=== PATIENT | female | born 1970 | race Caucasian/White ===

== ENCOUNTER → 2023-12-03 14:49 | Outpatient (REF) | payer OTHER, SELFPAY | LOC: HWRAD 14:49 | PROVIDERS: ATTENDING PHYSICIAN Physician Assistant Medical | DX: S99.921A Unspecified injury of right foot, initial encounter (principal) | CPT/HCPCS: 73630 ==

== ENCOUNTER → 2023-12-25 12:43 | Outpatient (REF) | payer OTHER, SELFPAY | LOC: HWRAD 12:43 | PROVIDERS: ATTENDING PHYSICIAN Nurse Practitioner Family; FAMILY PHYSICIAN Family Medicine | DX: N95.0 Postmenopausal bleeding (principal) | CPT/HCPCS: 76830; 76856 ==

== ENCOUNTER → 2023-12-26 11:57 | Outpatient (REF) | payer OTHER, SELFPAY | LOC: WDC 11:57 | PROVIDERS: ATTENDING PHYSICIAN Nurse Practitioner Family; FAMILY PHYSICIAN Family Medicine | DX: Z12.31 Encounter for screening mammogram for malignant neoplasm of breast (principal) | CPT/HCPCS: 77063; 77067 ==

== ENCOUNTER 2024-08-27 06:27 | Day surgery (SDC) | payer OTHER, SELFPAY ==
[2024-08-27] VITALS (8 sets, daily range): BP systolic 98–130; BP diastolic 53–81; BMI 22.2
[2024-08-27] MEDS: NORMOSOL-R/PLASMALYTE-A 1000 IV (09:56)
[2024-08-27] MEDS: TYLENOL 1000 MG PO (09:56)
[2024-08-27] MEDS: Pyridium 200 MG PO (11:24)
== END 2024-08-27 12:50 | disposition home or self-care (01) ==
LOC: SDS 06:27
PROVIDERS: ATTENDING PHYSICIAN Specialist
DX: N20.0 Calculus of kidney (principal)
CPT/HCPCS: 52356; 74018; 76000; C1894; C2617

== ENCOUNTER 2024-10-17 15:12 | Emergency (ER) | payer OTHER, SELFPAY ==
[2024-10-17 15:26] VITALS: BP 107/72
[2024-10-17 15:44] LABS: % Basophils 0.3 % (0-2); % Eosinophils 0.6 % (0-6); % Immature Granulocytes 0.2 % (0-0.5); % Lymphocytes 34.9 % (20.5-51.1); % Monocytes 5.9 % (1.7-9.3); % Neutrophils 58.1 % (42.2-75.2); Absolute Eosinophils 0.1 10^3/uL (0-0.7); Absolute Lymphocytes 3.1 10^3/uL (1.2-3.4); Absolute Monocytes 0.5 10^3/uL (0.1-0.6); Absolute Neutrophils 5.1 10^3/uL (1.4-6.5); Hematocrit 42.7 % (37.0-47.0); Hemoglobin 14.6 g/dL (12.0-16.0); Mean Corp Hgb Conc. 34.2 g/dL (33.0-37.0); Mean Corpuscular Hgb 31.9 pg (27.0-31.0); Mean Corpuscular Volume 93.4 fL (81.0-99.0); Mean Platelet Volume 8.9 fL (7.4-10.4); Nucleated Red Blood Cells % 0 %; Platelet Count 286 10^3/uL (130-400); Red Blood Cell Count 4.57 10^6/uL (4.20-5.40); Red Cell Dist. Width 12.3 % (11.5-14.5); White Blood Cell Count 8.8 10^3/uL (4.8-10.8)
[2024-10-17 16:00] LABS: HCG, Serum Qualitative Screen Negative
[2024-10-17 16:02] LABS: Urine Albumin Negative (Neg - Trace); Urine Bilirubin Negative (Negative); Urine Character Clear (Clear); Urine Color Yellow; Urine Glucose Negative (Negative); Urine Ketone Negative (Negative); Urine Leukocyte 2+ (Negative); Urine Nitrite Negative (Negative); Urine Occult Blood 1+ (Negative); Urine Specific Gravity 1.025 (<1.030); Urine Urobilinogen Negative (Neg - 1+)
[2024-10-17 16:04] LABS: ALT (SGPT) 15 U/L (0-35); AST (SGOT) 20 U/L (14-36); Albumin 5.2 g/dl (3.5-5.0); Alkaline Phosphatase 37 U/L (38-126); Blood Urea Nitrogen 15 mg/dl (7-17); Calcium 10.1 mg/dl (8.4-10.2); Carbon Dioxide 23 mmol/L (22-30); Chloride 108 mmol/L (98-107); Glucose 118 mg/dl (70-99); Potassium 4.3 mmol/L (3.5-5.1); Sodium 143 mmol/L (135-145); Total Bilirubin 0.8 mg/dl (0.2-1.3); Total Protein 7.9 g/dl (6.3-8.2); eGFR > 60.00
[2024-10-17 16:20] LABS: Urine Mucus Few
[2024-10-17 16:21] LABS: Urine Bacteria Moderate (Negative); Urine Red Blood Cell 0-2 /HPF (0-2)
[2024-10-17 16:48] LABS: Lipase 80 U/L (23-300)
--- NOTE | 2024-10-17 18:23 | ED.GENMED ---
History of Present Illness
General
Chief Complaint: Flank Pain
Source: patient
Exam Limitations: none
Time Seen by Provider: 10/17/24 18:00
History of Present Illness
History of Present Illness:
54-year-old female presents complaining of persistent flank pain and right lower abdominal pain. She notes the pain in her flank is both sides. She had a CT scan done in [place] 2 weeks ago. She has a history of kidney stones and has required
stents and lithotripsy. The pain that she describes feels somewhat similar to her kidney stones. She was told she had some type of lesion on her left kidney on the CT scan in [place]. She denies any urinary symptoms fever or fever. She does note
nausea and vomiting. No other complaints at this time
Past History
Past History
ED Past Medical History: Other (Kidney stones)
ED Past Surgical History: Urological (Staggering calculus removal right kidney)
Social History
Tobacco: Smoker
Alcohol: Occasional
Drug: None
Personal: Other (Boyfriend)
Living: other (Boyfriend)
Employment: Employed
Phy Exam
Physical Exam
Physical Exam:
General: Well-appearing female no acute respiratory distress
HEENT: Normocephalic atraumatic heart: Regular rate and rhythm
Lungs: Clear no wheeze abdomen soft tender to the right lower abdomen no guarding. She is also tender of the right costovertebral angle. Abdomen is nondistended no significant left-sided tenderness
Extremities: No cyanosis
Course
Orders/Labs/Results
Orders:
Orders
10/17/24 15:30
Test Result ONCE
10/17/24 15:35
Complete Blood Count/With Diff Urgent
Comprehensive Metabolic Panel Urgent
HCG, Serum Qualitative Screen Urgent
Comment: Notify provider if positive test present
Lipase Urgent
Urinalysis Reflex To Culture Urgent
Date Specimen was Collected: 10/17/24
Time Specimen was Collected: 15:30
Urine Microscopic Reflex Cult Urgent
Urine Culture Urgent
KRISTIAN Source: U
Specimen Description:
Date Specimen was Collected: 10/17/24
Time Specimen was Collected: 15:30
10/17/24 18:21
Ketorolac [Toradol] 15 mg IV NOW STA
Ondansetron Injectable [Zofran] 4 mg IV NOW STA
10/17/24 18:22
CT Abd/pel Without Iv Or Oral Urgent
Comment:
Reason For Exam: hematuria, flank pain
Abnormal Lab Results
10/17/24
15:35
MCH 31.9 H pg
(27.0-31.0)
Chloride 108 H mmol/L
(98-107)
Glucose 118 H mg/dl
(70-99)
Alkaline Phosphatase 37 L U/L
(38-126)
Albumin 5.2 H g/dl
(3.5-5.0)
Ur Occult Blood Reflex 1+ A
(Negative)
Leukocyte Esterase Rfl 2+ A
(Negative)
Urine Bacteria (Reflex) Moderate A
(Negative)
10/17/24 15:35
10/17/24 15:35
Vital Signs
Initial and Last Documented VS:
Initial Vital Signs
Temp Pulse Resp BP Pulse Ox
98.9 F 89 16 107/72 97
10/17/24 15:26 10/17/24 15:26 10/17/24 15:26 10/17/24 15:26 10/17/24 15:26
Last Documented Vital Signs
Temp Pulse Resp BP Pulse Ox
98.9 F 89 16 110/72 98
10/17/24 15:26 10/17/24 15:26 10/17/24 15:26 10/17/24 19:05 10/17/24 19:28
MDM/Problems Addressed
Differential Diagnosis Includes:
Right flank and lower abdominal pain. Consider renal colic versus appendicitis versus ovarian cyst versus constipation or pyelonephritis
Urinalysis shows some blood leukocytes and bacteria. Will attempt to load CT scan from [place] onto our system for visualization but will need a repeat CT today. This is ordered. Zofran and Toradol ordered
*Critical Care Note
Total Time (30-74mins, 75-104mins- exclusive of procedures): Not Applicable
Update Note
Update Note:
Patient reexamined. Appears well upon reassessment. Urinalysis still with possible infection. CT of abdomen shows no active kidney stone or other acute inflammatory process. I suspect continued cystitis. No fever white count normal. Will treat
with Omnicef. Stable for discharge with urology follow-up
ED Attending Note
-
Portions of this chart may have been created with voice recognition software.� Occasional wrong word or��sound alike� substitutions may have occurred due to the inherent limitations of voice recognition software.
Discharge Plan
Departure
Patient Disposition: Home (Routine Discharge)
Date of Disposition: 10/17/24
Time of Disposition: 22:29
Patient with high blood pressure during this ER visit?: No
Discharge Problem:
UTI (urinary tract infection)
Instructions: Urinary tract infections in adults
Prescriptions:
New
cefdinir 300 mg capsule
300 mg PO BID Qty: 14 0RF
No Action
ibuprofen 200 mg Tablet
400 mg PO Q6H PRN (Reason: pain)
Cbd Gummies
0.5 gummy PO PRN PRN (Reason: anxiety, sleep)
Referrals:
Paloma Rogers, [Family Provider] -
Activity Restrictions/Additional Instructions:
Take antibiotics as directed. Drink plenty of fluids. Return if worse otherwise follow-up with your urologist
Interventions
Interventions:
*Risk Screen - Suicide Last Done: 10/17/24 15:26
*General Assessment Last Done: 10/17/24 17:39
*Neglect/Abuse Screening Last Done: 10/17/24 15:26
*ED- Fall Risk Assessment Last Done: 10/17/24 19:04
*ED COVID-19 Vaccine History Last Done: 10/17/24 19:04
VQ-Czgljl-Jqoubcbkdq Assessment Last Done: 10/17/24 19:28
ED-Female Genitourinary Assessment Last Done: 10/17/24 19:28
Discharge Date and Time
Print Language: K[place]IL[place]
[2024-10-17 19:04] VITALS: BMI 23.4
[2024-10-17 19:05] VITALS: BP 110/72
[2024-10-17] MEDS: ZOFRAN 4 MG IV (19:31)
[2024-10-17] MEDS: TORADOL 15 MG IV (19:32)
== END 2024-10-17 22:52 | disposition home or self-care (01) ==
LOC: EMR 15:12
PROVIDERS: Emergency Medicine; EMERGENCY PHYSICIAN Emergency Medicine; FAMILY PHYSICIAN Family Medicine
DX: N39.0 Urinary tract infection, site not specified (principal); F17.200 Nicotine dependence, unspecified, uncomplicated
CPT/HCPCS: 99284; 96374; 96375; 74176; 80053; 81003; 81015; 83690; 84703; 85025; 87086

== ENCOUNTER → 2025-01-14 08:50 | Outpatient (REF) | payer OTHER, SELFPAY | LOC: HWRAD 08:50 | PROVIDERS: ATTENDING PHYSICIAN Internal Medicine Gastroenterology; FAMILY PHYSICIAN Family Medicine | DX: R10.9 Unspecified abdominal pain (principal) | CPT/HCPCS: 76700 ==

== ENCOUNTER → 2025-02-25 16:05 | Outpatient (REF) | payer OTHER, SELFPAY | LOC: WDC 16:05 | PROVIDERS: ATTENDING PHYSICIAN Nurse Practitioner Family; FAMILY PHYSICIAN Family Medicine | DX: Z12.31 Encounter for screening mammogram for malignant neoplasm of breast (principal) | CPT/HCPCS: 77063; 77067 ==

== ENCOUNTER 2025-03-16 18:49 | Emergency (ER) | payer OTHER, SELFPAY ==
[2025-03-16 18:51] VITALS: BP 138/71
[2025-03-16 19:06] LABS: Hematocrit 42.8 % (37.0-47.0); Hemoglobin 14.4 g/dL (12.0-16.0); Mean Corp Hgb Conc. 33.6 g/dL (33.0-37.0); Mean Corpuscular Volume 94.1 fL (81.0-99.0); Nucleated Red Blood Cells % 0 %; Platelet Count 279 10^3/uL (130-400); Red Cell Dist. Width 12.2 % (11.5-14.5)
[2025-03-16 19:28] LABS: ALT (SGPT) 18 U/L (0-35); AST (SGOT) 21 U/L (14-36); Albumin 4.9 g/dl (3.5-5.0); Alkaline Phosphatase 39 U/L (38-126); Blood Urea Nitrogen 15 mg/dl (7-17); Calcium 10.4 mg/dl (8.4-10.2); Carbon Dioxide 25 mmol/L (22-30); Chloride 106 mmol/L (98-107); Glucose 100 mg/dl (70-99); Potassium 4.2 mmol/L (3.5-5.1); Sodium 138 mmol/L (135-145); Total Protein 7.7 g/dl (6.3-8.2); eGFR > 60.00
[2025-03-16 20:24] VITALS: BMI 23.4
[2025-03-16 20:27] VITALS: BP 112/64
[2025-03-16] MEDS: NSS 1000 IV (20:35)
[2025-03-16 21:00] VITALS: BP 111/82
--- NOTE | 2025-03-16 21:09 | ED.GENMED ---
History of Present Illness
General
Chief Complaint: Abdominal Symptoms
Source: patient
Exam Limitations: none
Time Seen by Provider: 03/16/25 20:05
Nursing documentation reviewed up to this point in time: agreed with
History of Present Illness
History of Present Illness:
Patient who has recently taken 3 different antibiotics for urinary tract infection, presents to ED secondary to persistent nonbloody diarrhea over the past 4 days, along with generalized weakness/fatigue sensation. Denies fever or chills. Denies
nausea or vomiting. Denies abdominal pain. Denies headache. Denies dizziness. Denies loss of appetite. Patient spoke with her primary care physician, who is concerned that she may have C. difficile infection and referred patient to ED for an
evaluation.
Past History
Past History
ED Past Medical History: Other (Kidney stones)
ED Past Surgical History: Urological (Staggering calculus removal right kidney)
Social History
Tobacco: Smoker
Alcohol: Occasional
Drug: None
Personal: Other (Boyfriend)
Living: other (Boyfriend)
Employment: Employed
Review of Systems
Review of Systems
Allergies reviewed?: Yes
All Other Systems: ROS reviewed and negative except as documented in HPI and ROS
Constitutional: Reports no symptoms; Denies fever
Respiratory: Reports no symptoms
Cardiac: Reports no symptoms
ABD/GI: Reports diarrhea; Denies abdominal pain, nausea or vomiting
Musculoskeletal: Reports no symptoms
Skin: Reports no symptoms
Neurological: Reports weakness; Denies dizzy or headache
Phy Exam
Physical Exam
Physical Exam:
Physical Exam
General: no apparent distress, not acutely ill. afebrile
Head: nc/at. eomi
Neck: supple. no meningeal signs.
Heart: s1/s2 regular rate and rhythm
Lungs: no acute respiratory distress. clear bilaterally
Abdomen: normal bowel sounds. not tender.
Neuro: alert and oriented x 3. no focal neurological deficits
Skin: no rash
Psychiatric: well kept. interactive and cooperative
Extremities: no edema. no calf tenderness.
Course
Orders/Labs/Results
Orders:
Orders
03/16/25 19:01
CMP [Comprehensive Metabolic Panel] Urgent
Complete Blood Count/With Diff Urgent
03/16/25 20:19
Electrocardiogram (*1) Urgent
Reason for Study: QTc Monitoring
EKG- Treatment ONCE
0.9% Sodium Chloride 1000 ml [Nss] 1,000 ml IV BOLUS
03/16/25 22:39
Ondansetron Injectable [Zofran] 4 mg IV NOW STA
Abnormal Lab Results
03/16/25
19:01
MCH 31.6 H pg
(27.0-31.0)
Glucose 100 H mg/dl
(70-99)
Calcium 10.4 H mg/dl
(8.4-10.2)
03/16/25 19:01
03/16/25 19:01
Vital Signs
Initial and Last Documented VS:
Initial Vital Signs
Temp Pulse Resp BP Pulse Ox
98.5 F 70 18 138/71 99
03/16/25 18:51 03/16/25 18:51 03/16/25 18:51 03/16/25 18:51 03/16/25 18:51
Last Documented Vital Signs
Temp Pulse Resp BP Pulse Ox
98.5 F 67 18 107/70 99
03/16/25 18:51 03/16/25 20:27 03/16/25 20:27 03/16/25 22:00 03/16/25 22:15
MDM/Problems Addressed
MDM/Problems Addressed:
Blood work reviewed and discussed with patient. Unfortunately, during extended course observation ED, patient unable to produce stool sample to be analyzed. However, in light of patient's mild to moderate risk for C. difficile infection, will
advise patient to contact her primary care physician, to make arrange for an outpatient stool study. Return precautions provided, i.e. fever/intractable vomiting. Patient expresses understanding at time of test
*Pulse Oximetry
SaO2: 97
Oxygen Mode of Delivery: Room air
Patient hypoxic: no
*Critical Care Note
Total Time (30-74mins, 75-104mins- exclusive of procedures): Not Applicable
ED Attending Note
-
Portions of this chart may have been created with voice recognition software.� Occasional wrong word or��sound alike� substitutions may have occurred due to the inherent limitations of voice recognition software.
Discharge Plan
Departure
Patient Disposition: Home (Routine Discharge)
Date of Disposition: 03/17/25
Time of Disposition: 00:12
Patient with high blood pressure during this ER visit?: Yes
Condition: Fair
Discharge Problem:
Diarrhea
Instructions: Acute Diarrhea
Prescriptions:
No Action
ibuprofen 200 mg Tablet
400 mg PO Q6H PRN (Reason: pain)
Cbd Gummies
0.5 gummy PO PRN PRN (Reason: anxiety, sleep)
cefdinir 300 mg capsule
300 mg PO BID Qty: 14 0RF
Referrals:
Des Ryan MD [Family Provider, Family Practice]
Activity Restrictions/Additional Instructions:
As discussed, please follow-up with your primary physician for reevaluation, including outpatient stool study.
Interventions
Interventions:
*Risk Screen - Suicide Last Done: 03/16/25 18:51
*General Assessment Last Done: 03/16/25 18:51
*Neglect/Abuse Screening Last Done: 03/16/25 20:27
*ED- Fall Risk Assessment Last Done: 03/16/25 20:27
*ED COVID-19 Vaccine History Last Done: 03/16/25 20:27
*ED Influenza Vaccine History Last Done: 03/16/25 20:27
*Nursing Disposition Last Done: 03/17/25 00:35
PV-Zzyugq-Ypvroxvvrj Assessment Last Done: 03/16/25 20:28
Discharge Date and Time
Discharge Date/Time: 03/17/25 00:36
Print Language: STATELESS
[2025-03-16 22:00] VITALS: BP 107/70
[2025-03-16] MEDS: ZOFRAN 4 MG IV (22:46)
== END 2025-03-17 00:36 | disposition home or self-care (01) ==
LOC: EMR 18:49
PROVIDERS: Emergency Medicine; EMERGENCY PHYSICIAN Emergency Medicine; FAMILY PHYSICIAN Family Medicine
DX: R19.7 Diarrhea, unspecified (principal); F17.200 Nicotine dependence, unspecified, uncomplicated; Z87.442 Personal history of urinary calculi
CPT/HCPCS: 99283; 96374; 96361; 80053; 85025; 93005

== ENCOUNTER → 2025-05-15 09:12 | Outpatient (REF) | payer OTHER, SELFPAY | LOC: RAD 09:12 | PROVIDERS: ATTENDING PHYSICIAN Physician Assistant Medical; FAMILY PHYSICIAN Family Medicine | DX: R22.0 Localized swelling, mass and lump, head (principal) | CPT/HCPCS: 71260; Q9967 ==

== ENCOUNTER → 2025-05-21 11:56 | Outpatient (REF) | payer OTHER, SELFPAY | LOC: RAD 11:56 | PROVIDERS: ATTENDING PHYSICIAN Physician Assistant Medical | DX: M25.521 Pain in right elbow (principal) | CPT/HCPCS: 73080; 73110; 73564 ==

== ENCOUNTER → 2025-06-15 15:50 | Outpatient (REF) | payer OTHER, SELFPAY | LOC: RAD 15:50 | PROVIDERS: ATTENDING PHYSICIAN Physician Assistant Medical | DX: M54.6 Pain in thoracic spine (principal); M54.2 Cervicalgia; M54.9 Dorsalgia, unspecified; R10.9 Unspecified abdominal pain | CPT/HCPCS: 71046; 74177; Q9967 ==